=== PATIENT | male | born 1945 | race Caucasian/White ===

== ENCOUNTER 2018-01-21 17:45 | Emergency (ER) | payer MEDICARE ==
[2018-01-21 17:57] VITALS: BP 157/82
--- NOTE | 2018-01-21 18:29 | RADIOLOGY REPORT (SQ) ---
EXAM DESCRIPTION: ANKLE LEFT COMPLETE COMPLETED DATE/TIME: 01/21/2018 6:16 pm REASON FOR STUDY: fall landed on ankle. COMPARISON: None. NUMBER OF VIEWS: Three views. TECHNIQUE: AP, lateral, and oblique radiographic images acquired of the left ankle. LIMITATIONS: None. FINDINGS: MINERALIZATION: Normal. BONES: No multiple bone fragments adjacent to the medial malleolus and deep to the lateral malleolus compatible with chronic avulsion type injury. Some of the bone fragments may represent superimposed acute avulsion type fracture especially medially. Plantar calcaneal spurring and minimal posterior c alcaneal spurring. JOINTS: There is a small joint effusion. SOFT TISSUES: Diffuse soft tissue swelling most notably medially and anteriorly. OTHER: No other significant finding. 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 TECHNICAL DOCUMENTATION: JOB ID: [id number] [employer]- All Rights Reserved Reading location - IP/workstation name: [email or web address]
--- NOTE | 2018-01-21 18:30 | ER Document Report ---
HPI - HPI Pain Level: 3 Notes: Patient is a 72-year-old male with a history of hypertension who presents to the ED complaining of left medial ankle pain and swelling status post injury prior to arrival. Patient states that he was standing on scaffolding when he fell about 5-6 feet and landed on his feet standing upright. Patient states that he had pain almost immediately. Patient presents to the ED for evaluation. The pain does not radiate. He has noticed some bruising. He is not on any blood thinners. Denies any drug allergies or other significant past medical history to that ankle. Denies any headache, fever, head injury, URI, sore throat, chest pain, palpitations, syncope, cough, shortness of breath, wheeze, dyspnea, abdominal pain, nausea/vomiting/diarrhea, urinary retention, dysuria, hematuria, loss of control of bowel or bladder, numbness/tingling, saddle anesthesia, muscle paralysis/weakness, or rash. - ROS Systems Reviewed and Negative: Yes All other systems reviewed and negative Past Medical History - Social History Smoking Status: Never Smoker Family History: Reviewed & Not Pertinent Vertical Provider Document - CONSTITUTIONAL Agree With Documented VS: Yes Notes: PHYSICAL EXAMINATION: GENERAL: Well-appearing, well-nourished and in no acute distress. LUNGS: Breath sounds clear to auscultation bilaterally and equal. No wheezes rales or rhonchi. HEART: Regular rate and rhythm without murmurs, rubs, gallops. Musculoskeletal: Left ankle: FROM to passive/active. Strength 5+/5. + swelling and ecchymosis to the medial ankle. + tenderness associated. No other tendernes to the ankle/foot. N/V intact distal. Achilles intact. Extremities: No cyanosis, clubbing, or edema b/l. Peripheral pulses 2+. Capillary refill less than 3 seconds. NEUROLOGICAL: Normal speech, limping gait with SPC. Normal sensory, motor exams PSYCH: Normal mood, normal affect. SKIN: Warm, Dry, normal turgor, no rashes or lesions noted. - INFECTION CONTROL TRAVEL OUTSIDE OF THE [place] IN LAST 30 DAYS: No Course - Re-evaluation Re-evalutation: 01/21/18 19:10 Patient is an afebrile, well-hydrated, 72-year-old male who presents to the ED with an avulsion fracture to his medial ankle. Vitals are acceptable. PE is otherwise unremarkable for any neurovascular compromise, obvious tendon/ ligament rupture, open fracture/dislocation, septic joint. Posterior ankle splint placed today and crutches were provided. Recommend conservative measures for symptoms. I will send him home with a prescription for Sumrall dispense pack. Call orthopedics to schedule an appointment for further evaluation and management. Recheck with your PCM in 1 week as well. Return to the ED with any worsening/concerning symptoms otherwise as reviewed discharge. Patient is in agreement. - Vital Signs Vital signs: Temp Pulse Resp BP Pulse Ox 98.5 F 79 16 157/82 H 96 01/21/18 17:55 01/21/18 17:55 01/21/18 17:55 01/21/18 17:55 01/21/18 17:55 Procedures - Immobilization Left Ankle Time completed: 19:05 Pre-Proc Neuro Vasc Exam: Normal Immobilizer type: Posterior ankle Performed by: PCT Post-Proc Neuro Vasc Exam: Normal, Unchanged from pre-exam Discharge - Discharge Clinical Impression: Avulsion fracture of ankle Qualifiers: Encounter type: initial encounter Fracture type: closed Laterality: left Qualified Code(s): S82.892A - Other fracture of left lower leg, initial encounter for closed fracture Condition: Stable Disposition: HOME, SELF-CARE Instructions: Avulsion Fracture of the Ankle ([facility]), Use of Crutches ([facility]), Splint Precautions ([facility]) Additional Instructions: Rest, Ice, Compression, Elevation Use crutches/splint as directed Tylenol/ibuprofen as needed Light stretches daily Strength exercises as able Moist heat and massage may help F/u with your PCP in 3-5 days for a recheck Call orthopedics to schedule an appointment for further evaluation and management Return to the ED with any worsening symptoms and/or development of fever, headache, chest pain, palpitations, syncope, shortness of breath, trouble breathing, abdominal pain, n/v/d, muscle weakness/paralysis, numbness/tingling, swelling, redness, or other worsening symptoms that are concerning to you. Forms: Elevated Blood Pressure Referrals: [facility] [Provider Group] - Follow up in 3-5 days
[2018-01-21] MEDS ORDERED: HYDROCODONE/ACETAMINOPHEN 5-325 MG (6 TAB/ER DISP) PO PRN (18:33)
== END 2018-01-21 19:15 | disposition home or self-care (01) ==
LOC: ER 17:45
DX: S82.892A Other fracture of left lower leg, initial encounter for closed fracture (principal); M25.571 Pain in right ankle and joints of right foot; W17.89XA Other fall from one level to another, initial encounter; Y99.0 Civilian activity done for income or pay
CPT/HCPCS: 99283; 73610; 29515; A9270